=== PATIENT | female | born 2000 | race Caucasian/White ===

== ENCOUNTER 2024-06-24 13:30 | Emergency (ER) | payer BC, SELFPAY ==
[2024-06-24 13:30] VITALS: BP 130/83
--- NOTE | 2024-06-24 14:32 | ED.GENMED ---
History of Present Illness
General
Chief Complaint: Crisis Evaluation
Source: patient and family
Exam Limitations: none
Time Seen by Provider: 06/24/24 13:44
Nursing documentation reviewed up to this point in time: agreed with
History of Present Illness
History of Present Illness:
The patient is a 24-year-old female with a past medical history of psychosis who was brought in by her parents for erratic behavior and speech over the last few days. Parents report she has been off her medication for several weeks to months.
Additionally, they reports she recently got a medical marijuana card and against their wishes, has been using marijuana. They report that between her not taking her medication and using marijuana, she has now become psychotic. They report that her
mood is extremely labile. She gets agitated easily. They reports she is not making sense. Currently she is not in school nor is she working. Patient denies marijuana use to me. Patient is a vague historian and is bizarre.
Past History
Past History
ED Past Medical History: Psychiatric (History of psychosis)
ED Past Surgical History: None
Social History
Tobacco: Non-smoker
Alcohol: None
Drug: Marijuana
Personal: Single
Living: with family
Employment: Not employed
Family History
Family History: Other
Review of Systems
Review of Systems
Allergies reviewed?: Yes
All Other Systems: ROS reviewed and negative except as documented in HPI and ROS
Constitutional: Reports fatigue
EENT: Reports no symptoms
Respiratory: Reports no symptoms
Cardiac: Reports no symptoms
ABD/GI: Reports no symptoms
: Reports no symptoms
Musculoskeletal: Reports no symptoms
Skin: Reports no symptoms
Neurological: Reports no symptoms; Denies headache
Endocrine: Reports no symptoms
Hematologic/Lymphatic: Reports no symptoms
Psychiatric: Denies suicidal
Phy Exam
Physical Exam
Physical Exam:
Physical Exam
General: no apparent distress, bizarre affect
Neck: supple. no meningeal signs. normal psoterior pharynx
Heart: s1/s2 regular rate and rhythm, no murmur. equal radial pulses.
Lungs: no acute respiratory distress. clear bilaterally
Abdomen: normal bowel sounds. not tender. no CVAT
Neuro: alert and oriented to self and year. Disoriented to place. no focal neurological deficits
Skin: no rash
Psychiatric: well kept. Flat and bizarre affect. Slightly agitated at times. Disorganized speech.
Extremities: no edema. no calf tenderness. negative homans. good distal pulses
Course
Orders/Labs/Results
Orders:
Orders
06/24/24 14:31
Test Result ONCE
06/24/24 14:39
Crisis Consult Urgent
Reason for Consult: acute psychosis
06/24/24 15:22
Alcohol Urgent
Complete Blood Count/With Diff Urgent
Comprehensive Metabolic Panel Urgent
06/24/24 18:27
HCG, Urine Qualitative Screen Urgent
Date Specimen was Collected: 06/24/24
Time Specimen was Collected: 17:52
Urine Drug Abuse Screen Urgent
Date Specimen was Collected: 06/24/24
Time Specimen was Collected: 17:52
Abnormal Lab Results
06/24/24 06/24/24
15:22 18:27
RDW 14.6 H %
(11.5-14.5)
MPV 11.1 H fL
(7.4-10.4)
Absolute Monos (auto) 1.2 H 10^3/uL
(0.1-0.6)
Monocytes % 13.4 H %
(1.7-9.3)
BUN 5 L mg/dl
(7-17)
Total Bilirubin 2.1 H mg/dl
(0.2-1.3)
Albumin 5.1 H g/dl
(3.5-5.0)
U Marijuana (THC) Screen Positive H
(Negative)
06/24/24 15:22
06/24/24 15:22
Vital Signs
Initial and Last Documented VS:
Initial Vital Signs
Temp Pulse Resp BP Pulse Ox
97.6 F 89 18 130/83 95
06/24/24 13:30 06/24/24 13:30 06/24/24 13:30 06/24/24 13:30 06/24/24 13:30
Last Documented Vital Signs
Temp Pulse Resp BP Pulse Ox
97.6 F 89 18 130/83 95
06/24/24 13:30 06/24/24 13:30 06/24/24 13:30 06/24/24 13:30 06/24/24 13:30
MDM/Problems Addressed
Differential Diagnosis Includes:
Substance abuse, acute on chronic psychosis
MDM/Problems Addressed:
Patient presents with acutely bizarre behavior and disorganized speech
Chronic conditions affecting care:
Psychosis
Acute Exacerbation and/or Progression of Chronic Illness:
Patient likely has acute on chronic psychosis due to not taking medication
*Pulse Oximetry
Patient hypoxic: no
*EKG
Interpreted by ED Provider?: NA
*Dishroom Attendant Interpretation
Rate: Dishroom Attendant- N/A
*Critical Care Note
Total Time (30-74mins, 75-104mins- exclusive of procedures): 32 minutes
comment:
32 minutes of critical care spent on the patient including reviewing prior medical evals by psychiatry, as well as speaking to [facility], the patient as well as her parents who are at the bedside
Data Reviewed
Review of Other/Old Records Reveals: Progress Notes (Progress note reviewed from Dr. Carrion from 2019 when patient was placed on a 302 and had thoughts of hurting herself)
Source: patient and family
Patient Management
Discussion with other providers: Other ([facility])
Update Note
Update Note:
Patient will go to [facility] for inpatient psychiatric management
ED Attending Note
-
Portions of this chart may have been created with voice recognition software.� Occasional wrong word or��sound alike� substitutions may have occurred due to the inherent limitations of voice recognition software.
Discharge Plan
Departure
Patient Disposition: Psych Facility
Date of Disposition: 06/24/24
Time of Disposition: 16:00
Patient Status:: 302
Condition: Critical
Covid-19: Not Applicable
Discharge Problem:
Acute exacerbation of psychosis
Prescriptions:
No Action
Multivitamin
1 tab PO DAILY
Referrals:
NONE,* [Family Provider] -
Interventions
Interventions:
*Risk Screen - Suicide Last Done: 06/24/24 13:30
*General Assessment Last Done: 06/24/24 13:30
*Neglect/Abuse Screening Last Done: 06/24/24 13:30
*ED COVID-19 Vaccine History Last Done: 06/24/24 15:46
ED-Psychological Assessment Last Done: 06/24/24 15:46
Discharge Date and Time
Print Language: ICELANDIC
[2024-06-24 15:36] LABS: % Basophils 0.6 % (0-2); % Eosinophils 0.3 % (0-6); % Immature Granulocytes 0.2 % (0-0.5); % Lymphocytes 26.3 % (20.5-51.1); % Monocytes 13.4 % (1.7-9.3); % Neutrophils 59.2 % (42.2-75.2); Absolute Basophils 0.1 10^3/uL (0-0.2); Absolute Lymphocytes 2.3 10^3/uL (1.2-3.4); Absolute Monocytes 1.2 10^3/uL (0.1-0.6); Absolute Neutrophils 5.2 10^3/uL (1.4-6.5); Hematocrit 41.7 % (37.0-47.0); Hemoglobin 13.9 g/dL (12.0-16.0); Mean Corp Hgb Conc. 33.3 g/dL (33.0-37.0); Mean Corpuscular Hgb 28.8 pg (27.0-31.0); Mean Corpuscular Volume 86.3 fL (81.0-99.0); Mean Platelet Volume 11.1 fL (7.4-10.4); Nucleated Red Blood Cells % 0 %; Platelet Count 260 10^3/uL (130-400); Red Blood Cell Count 4.83 10^6/uL (4.20-5.40); Red Cell Dist. Width 14.6 % (11.5-14.5); White Blood Cell Count 8.7 10^3/uL (4.8-10.8)
[2024-06-24 15:47] LABS: ALT (SGPT) 19 U/L (0-35); AST (SGOT) 23 U/L (14-36); Albumin 5.1 g/dl (3.5-5.0); Alkaline Phosphatase 50 U/L (38-126); Blood Urea Nitrogen 5 mg/dl (7-17); Calcium 10.1 mg/dl (8.4-10.2); Carbon Dioxide 26 mmol/L (22-30); Chloride 104 mmol/L (98-107); Glucose 93 mg/dl (70-99); Potassium 3.5 mmol/L (3.5-5.1); Sodium 143 mmol/L (135-145); Total Bilirubin 2.1 mg/dl (0.2-1.3); Total Protein 8.2 g/dl (6.3-8.2); eGFR > 60.00
[2024-06-24 15:49] LABS: Alcohol None Detected
[2024-06-24 18:37] LABS: HCG, Urine Qualitative Screen Negative
[2024-06-24 18:51] LABS: Amphetamines Negative (Negative); Barbiturates Negative (Negative); Benzodiazepines Negative (Negative); Buprenorphine Negative (Negative); Cocaine Negative (Negative); Marijuana Positive (Negative); Methadone Negative (Negative); Methamphetamines Negative (Negative); Opiates Negative (Negative); Phencyclidine Negative (Negative); Tricyclic Antidepressants Negative (Negative)
[2024-06-24 19:36] VITALS: BP 143/92
[2024-06-24] MEDS: SAPHRIS 5 MG SL (19:57)
[2024-06-24] MEDS: ATIVAN 1 MG IM (20:11)
[2024-06-24] MEDS: HALDOL 1 MG IM (20:12)
--- NOTE | 2024-06-24 20:36 | ED.CRISIS ---
ED Crisis Note
ED Crisis Note
Subjective:
Patient not answering questions
Objective:
Patient screaming and inconsolable
Assessment/Plan:
Care of patient was transitioned pending transfer to [facility]. Apparently, patient has been very calm and cooperative. Prior to EMS coming for transport, patient became extremely combative and screaming. She required 4 point
restraints. She quickly calmed down. The initial plan was IM medication to help sedate. However, patient did calm down and stated that she could take oral medication. She quickly spit out the sublingual Saphris. She became more combative
requiring IM dose of Ativan and Haldol.
== END 2024-06-24 21:25 ==
LOC: EMR 13:30
PROVIDERS: EMERGENCY PHYSICIAN Emergency Medicine
DX: F29 Unspecified psychosis not due to a substance or known physiological condition (principal); F12.90 Cannabis use, unspecified, uncomplicated
CPT/HCPCS: 96372; 99285; 80053; 80306; 81025; 82077; 85025